=== PATIENT | male | born 1955 | race Caucasian/White ===

== ENCOUNTER → 2017-12-08 12:57 | Outpatient (CLI) | payer OTHER, SELFPAY ==
--- NOTE | 2017-12-08 13:11 | CT_ITS ---
CT lung screening EXAM: CT LUNG LOW DOSE WO CONTRAST HISTORY: Greater than 30 pack-year smoking history asymptomatic for breast cancer ITS.REASON: CURRENT TOBACCO USE ORDERING PHYSICIAN: Moo Zuñiga PATIENT AGE: 62 years COMPARISON: TECHNIQUE: The exam was performed on a GE Light Speed [address] scanner using 2.90 mGy CTDI. A low dose helical CT CHEST was performed on a multi-detector scanner. All CT scans at the facility use one or more dose reduction, viz: automated exposure control, ma/kV adjustment per patient size (including targeted exams where dose is matched to indication, i.e. head), or iterative reconstruction technique. The LDCT was performed in a facility that meets the criteria for the screening program. Data regarding this exam was submitted to [employer] which is an approved registry. The order for this exam indicates that it came as a result of a lung cancer screening counseling shard decision-making visit that included all the elements required of such a visit including smoking cessation. The radiologist interpreting this exam meets the CMS criteria for the LDCT lung cancer screening program. The exam is reported using the Lung-RADS classification scale and reported to the [employer] registry. NOTE: This study was performed for the specific purposes of lung cancer screening and is not an alternative to diagnostic chest CT. RADIATION DOSE: CTDI vol(CT dose Index-volume) = 2.90mG DLP (Dose Length Product) = 117.77 mGcm FINDINGS: There are severe and lobular and centrilobular is present with its changes with hyperinflation and attenuation of the peripheral pulmonary vessels with bronchial thickening 6 mm noncalcified nodule right middle lobe image #75. Scattered subpleural opacities system with fibrotic changes. Patchy groundglass density right lower lobe in the lung base posteriorly nonspecific 4 mm noncalcified nodule right lower lobe posteriorly image #66. Calcified nodule left lower lobe 3 mm noncalcified nodule left lower lobe medially image #66 Atelectatic or fibrotic changes within the lingula subpleural region with atelectatic or fibrotic changes in the lung bases. Scattered calcified lymph nodes are present in the mediastinum. Coronary artery calcifications are also present. IMPRESSION: 1. Lung RADS Category: 3, probably benign 2. Other findings: Centrilobular and panlobular emphysema with COPD and fibrotic changes with evidence of old granulomatous disease Coronary artery calcification RECOMMENDATIONS: 6 month LDCT follow-up
== END ==
PROVIDERS: PCP Internal Medicine; Visit Provider Internal Medicine
DX: Z12.2 Encounter for screening for malignant neoplasm of respiratory organs (principal); Z87.891 Personal history of nicotine dependence

== ENCOUNTER → 2018-06-07 14:13 | Outpatient (CLI) | payer OTHER, SELFPAY ==
--- NOTE | 2018-06-07 14:54 | CT_ITS ---
CT chest wo con HISTORY: Emphysema, COPD, smoker, tobacco use, follow-up abnormal chest CT, pulmonary nodule follow-up ITS.REASON: 6 MONTH F/U LOW DOSE LUNG SCREENING ORDERING PHYSICIAN: Moo Zuñiga PATIENT AGE: 63 years COMPARISON: 12/08/2017 Technique: Axial images obtained following the administration of 75 mL of Optiray 350 . Sagittal, and coronal reformatted images are also generated and reviewed. All CT scans at the facility use one or more dose reduction, viz: automated exposure control, ma/kV adjustment per patient size (including targeted exams where dose is matched to indication, i.e. head), or iterative reconstruction technique. FINDINGS: No mediastinal or hilar mass or adenopathy. There are few scattered calcified mediastinal lymph nodes. Coronary artery calcifications are present. Normal heart size without evidence of pericardial effusion. Diffuse centrilobular emphysema with scattered areas of scarring.. Calcified nodules present in the left lower lobe medially. There is 4 mm nodule in the right lung base medially unchanged, 6 mm nodule right middle lobe medially unchanged, 4 mm noncalcified nodule right lower lobe medially unchanged. No new nodules evident. IMPRESSION: 1. Stable CT appearance of the chest. No change in small bilateral pulmonary nodules. 2. Centrilobular emphysema with COPD and old granulomatous disease. Recommend 12 month LDCT follow-up
== END ==
PROVIDERS: PCP Internal Medicine; Visit Provider Internal Medicine
DX: Z72.0 Tobacco use (principal)
CPT/HCPCS: 71250

== ENCOUNTER → 2022-11-02 16:01 | Outpatient (CLI) | payer OTHER, SELFPAY ==
[2022-11-02 16:49] LABS: Basophils # 0.1 K/mm3 (0-0.2); Basophils % 0.7 % (0.1-2.0); Eosinophils # 0.2 K/mm3 (0.0-0.4); Hematocrit 50.6 % (42.0-52.0); Hemoglobin 15.4 g/dL (14.1-18.0); Lymphocytes # 1.6 K/mm3 (0.7-4.5); Mean Corpuscular HGB Conc 30.5 g/dL (31.8-35.4); Mean Corpuscular Hemoglobin 30.4 pg (27.0-31.2); Mean Corpuscular Volume 99.7 fl (80-94); Mean Platelet Volume 8.4 fl (7.4-10.4); Monocytes # 0.4 K/mm3 (0.1-1.0); Monocytes % 4.8 % (1.7-9.3); Neutrophils # 5.8 K/mm3 (1.8-7.8); Neutrophils % 72.5 % (37.0-80.0); Platelet Count 294 K/mm3 (142-424); Red Blood Count 5.08 M/mm3 (4.60-6.20); Red Cell Distribution Width 13.9 % (11.5-17.5); White Blood Count 7.9 K/mm3 (4.8-10.8)
[2022-11-02 16:51] LABS: Alanine Aminotransferase 30 U/L (12-78); Albumin Level 3.7 g/dl (3.5-5.0); Albumin/Globulin Ratio 1.2 (1.1-1.8); Alkaline Phosphatase 90 U/L (38-126); Anion Gap 10.9 mEq/L (5-15); Aspartate Amino Transferase 33 U/L (17-59); Blood Urea Nitrogen 11 mg/dl (9-20); Calcium 9.9 mg/dl (8.4-10.2); Carbon Dioxide 26 mmol/L (22.0-30.0); Chloride 107 mmol/L (98-107); Creatine Kinase 70 U/L (55-170); Estimated Glomerular Filt Rate 97 ml/min (>60); GFR (African American) 117 ML/MIN (>60); Glucose 96 mg/dl (74-100); Potassium 3.9 mmoL/L (3.5-5.1); Sodium 140 mmol/L (136-145); Total Protein,Serum 6.7 g/dl (6.3-8.2)
[2022-11-02 16:54] LABS: Bilirubin,Total 0.1 mg/dl (0.2-1.3)
[2022-11-02 16:56] LABS: C-Reactive Protein 7.9 mg/L (0-4)
== END ==
PROVIDERS: PCP Internal Medicine Infectious Disease; Visit Provider Internal Medicine Infectious Disease
DX: Z51.81 Encounter for therapeutic drug level monitoring (principal); Z79.2 Long term (current) use of antibiotics
CPT/HCPCS: 80053; 82550; 85025; 86140